=== PATIENT | female | born 2000 | race Caucasian/White ===

== ENCOUNTER 2020-12-11 19:48 | Emergency (ER) | payer OTHER ==
[2020-12-11 21:09] LABS: HEMOGLOBIN 14.3 gm/dl (12.3-15.3); RED BLOOD COUNT 4.83 M/UL (4.00-5.10); WHITE BLOOD COUNT 8.1 K/UL (4.5-11.0)
[2020-12-11 21:27] LABS: BUN/CREATININE RATIO 13 (0-10)
[2020-12-11] MEDS ORDERED: FLORASTOR250 MG PO (23:50)
[2020-12-11] MEDS ORDERED: ZOFRAN ODT 4 MG4 MG SL (23:50)
[2020-12-11] MEDS ORDERED: OMNICEF 300 MG300 MG PO (23:50)
[2020-12-11] MEDS ORDERED: BENTYL 10MG CAP10 MG PO (23:50)
== END 2020-12-12 | disposition home or self-care (01) ==
LOC: ER1 19:48
PROVIDERS: Emergency Medicine
DX: N39.0 Urinary tract infection, site not specified (principal)
CPT/HCPCS: 76830; 80053; 81001; 84703; 85025; 96374; 96375; 96376; 99285; J2270; J2405; Q9967

== ENCOUNTER 2021-04-24 19:59 | Emergency (ER) | payer OTHER ==
[~2021-04-24 19:59] MED LIST: BENTYL 10MG CAP10 MG PO; FLORASTOR250 MG PO; OMNICEF 300 MG300 MG PO; ZOFRAN ODT 4 MG4 MG SL
[2021-04-24 21:07] LABS: HEMOGLOBIN 12.7 gm/dl (12.3-15.3); RED BLOOD COUNT 4.27 M/UL (4.00-5.10); WHITE BLOOD COUNT 5.7 K/UL (4.5-11.0)
[2021-04-24 21:30] LABS: BUN/CREATININE RATIO 17 (0-10)
== END 2021-04-25 00:45 | disposition home or self-care (01) ==
LOC: ER1 19:59
PROVIDERS: Physician Assistant
DX: K62.5 Hemorrhage of anus and rectum (principal); M54.50 Low back pain, unspecified
CPT/HCPCS: 80053; 81001; 82272; 84703; 85025; 99284; Q9967